=== PATIENT | male | born 1945 | race Caucasian/White ===

== ENCOUNTER 2018-02-22 10:19 | Inpatient (IN) ==
--- NOTE | 2018-02-22 10:46 | Emergency Department Note ---
Disposition Clinical Impression: Pelvic abscess, Small bowel obstruction Disposition: Admitted As Inpatient Referrals: Blanco,Daron rOtiz MD [Primary Care Provider] - Forms: ED Satisfaction Letter, Work/School Release Abdominal Pain HPI - General Chief Complaint: ED General Medical Stated Complaint: abd pain, vomiting Time Seen by Provider: 02/22/18 10:38 - History of Present Illness HPI Narrative: 72 YO M here for abdominal distension following an ostomy placement with Dr. Guerrero last Fri with d/c on Friday. Has has a history of rectal cancer. Patient states since his surgery he has not had a bowel movement but has been passing gas with increasing abdominal distension and discomfort. He reports no abdominal pain. He has N/V - with bilious vomitous and is unable to tolerate PO intake without vomiting. Patient denies headache, fever, chills, night sweats, myalgias, CP, SOB, urinary changes. Pain Scale: 0 - Related Data Home Medications Medication Instructions Recorded Confirmed Ascorbate Calcium [Vitamin C] 500 mg PO DAILY 11/21/17 02/18/18 Levothyroxine [Synthroid] 25 mcg PO DAILY 11/21/17 02/18/18 Insulin NPH Hum/Reg Insulin Hm 5 unit SQ TID 02/12/18 02/19/18 [Humulin 70-30 Vial] Atorvastatin [Lipitor] 10 mg PO HS 02/18/18 02/18/18 Cholecalciferol (Vitamin D3) 1,000 unit PO DAILY 02/18/18 02/18/18 [Vitamin D3] Cyanocobalamin (Vitamin B-12) 100 mcg PO DAILY 02/18/18 02/18/18 [Vitamin B-12] Insulin DETEMIR [Levemir] 16 unit SQ HS 02/18/18 02/18/18 Previous Rx's Medication Instructions Recorded Docusate [Colace] 100 mg PO BID #30 capsule 02/20/18 Ferrous Sulfate 325 mg PO BID #60 tablet 02/20/18 Ibuprofen [Ibu] 600 mg PO QID #40 tablet 02/20/18 Ondansetron ODT [Zofran ODT] 4 mg SL Q6HR PRN #30 tab.rapdis 02/20/18 OxyCODONE/APAP 5/325 [Percocet 1 each PO Q6HR PRN 5 Days #20 02/20/18 5/325 MG] tablet Allergies Allergy/AdvReac Type Severity Reaction Status Date / Time No Known Allergies Allergy Verified 02/16/18 10:14 All systems ED: reviewed and negative except as stated. Review of Systems: As Per HPI Constitutional: Denies: fever, chills, weakness, weight change, night sweats Cardiovascular: Denies: chest pain, palpitations Respiratory: Denies: cough, dyspnea Gastrointestinal: Reports: nausea, vomiting. Denies: abdominal pain Genitourinary: Denies: urgency, dysuria, frequency Neurological: Denies: headache, weakness Abdominal Pain PMH - Past Medical History Medical history: Reports: cancer, CVA, diabetes, hyperlipidemia, hypertension Male Surgical History: Reports: cancer surgery Psychiatric history: Reports: no psych history - Social History Smoking status: Never smoker Alcohol use: Reports: none Drug use: Reports: none Physical Exam - General Limitations: no limitations General appearance: alert, in no apparent distress - Head Head exam: atraumatic, normocephalic - Chest Chest inspection: Present: normal inspection, symmetric chest wall rise - Respiratory Respiratory exam: Present: normal lung sounds bilaterally. Absent: respiratory distress - Cardiovascular Cardiovascular exam: Present: regular rate, normal rhythm, normal heart sounds - Abdominal Exam Abdominal exam: Present: distention, normal bowel sounds. Absent: tenderness, guarding, rebound, rigidity - Neurological Exam Neurological exam: Present: alert, oriented X3 - Psychiatric Psychiatric exam: Present: normal affect, normal mood Course Course Narrative: 72 YO M here for abdominal distension following ostomy placement. Will workup bowel obstruction. - Ordered abdominal CT - Supportive care: fluids, zoffran - Urinalysis - Reevaluation(s) Reevaluation #1: CT abdomen shows obstruction vs postoperative ileus. Also sees mixed fluid and air collection which most likely is an abscess. Spoke to Dr. Rosenberg and he is okay to admit him and asked us to put in a NG 18-burmese. Vital Signs Temperature 97.5 F L 02/22/18 10:29 Pulse Rate 66 02/22/18 10:29 Respiratory Rate 20 02/22/18 10:29 Blood Pressure 101/72 02/22/18 10:29 O2 Sat by Pulse Oximetry 99 02/22/18 10:29 Temperature 97.5 F L 02/22/18 10:29 Pulse Rate 66 02/22/18 10:29 Respiratory Rate 20 02/22/18 10:29 Blood Pressure 101/72 02/22/18 10:29 O2 Sat by Pulse Oximetry 99 02/22/18 10:29 Oxygen Delivery Oxygen Delivery Room Air Abdominal Pain - Lab Data Result diagrams: 02/22/18 11:38 02/22/18 11:38 Lab Results 02/22/18 02/22/18 02/22/18 Range/Units 11:38 11:38 11:38 WBC 12.1 H (4.3-11.1) K/mcL RBC 3.55 L (4.19-5.50) M/mcL Hgb 10.2 L D (12.9-16.9) g/dL Hct 32.2 L (37.5-50.1) % MCV 90.7 (83.0-100.0) fL MCH 28.7 (28.0-33.3) pg MCHC 31.7 (31.6-35.5) g/dL RDW 14.8 H (11.5-14.5) % Plt Count 289 D (140-400) K/mcL MPV 9.3 L (9.4-12.4) fL Seg Neutrophils % 68.0 % Band Neutrophils % 20.0 H (0-4) % Lymphocytes % 6.0 % Monocytes % 6.0 % Neutrophils # 10.7 H (1.6-8.9) K/mcL Lymphocytes # 0.7 (0.6-4.6) K/mcL Monocytes # 0.7 (0.0-1.3) K/mcL Platelet Estimate Normal (Normal) Poikilocytosis 1+ A (Not Present) Anisocytosis 1+ A (Not Present) Sodium 139 (136-145) mEq/L Potassium 3.9 (3.5-5.1) mEq/L Chloride 101 (98-107) mEq/L Carbon Dioxide 31 H (23-29) mEq/L BUN 25 H (8-23) mg/dL Creatinine 0.91 (0.70-1.30) mg/dL Est GFR ( Amer) > 60 (> 60) Est GFR (Non-Af Amer) > 60 (> 60) BUN/Creatinine Ratio 27 H (6-26) Glucose 84 (70-105) mg/dL Calculated Osmolality 292 (280-300) Lactic Acid 1.2 (0.5-2.2) mmol/L Calcium 9.4 (8.6-10.3) mg/dL Total Bilirubin 0.5 (0.3-1.0) mg/dL AST 10 L (13-39) Units/L ALT 8 (7-52) Units/L Alkaline Phosphatase 123 H (34-104) Units/L Serum Total Protein 5.9 L (6.4-8.9) g/dL Albumin 2.6 L (3.5-5.7) g/dL Globulin 3.3 (2.4-3.5) g/dL Albumin/Globulin Ratio 0.8 L (1.1-2.2)
[2018-02-22] MEDS ORDERED: Ondansetron 4 MG/2 ML VIAL IVP ONE (11:05)
[2018-02-22] MEDS ORDERED: 0.9 % Sodium Chloride 1,000 ML IVC ONE (11:05)
[2018-02-22 11:47] LABS: Hematocrit 32.2 % (37.5-50.1); Mean Corpuscular HGB Conc 31.7 g/dL (31.6-35.5); Mean Corpuscular Hemoglobin 28.7 pg (28.0-33.3); Mean Corpuscular Volume 90.7 fL (83.0-100.0); Mean Platelet Volume 9.3 fL (9.4-12.4); Platelet Count 289 K/mcL (140-400); Red Blood Count 3.55 M/mcL (4.19-5.50); Red Cell Distribution Width 14.8 % (11.5-14.5)
[2018-02-22 11:55] LABS: Hemoglobin 10.2 g/dL (12.9-16.9)
[2018-02-22 12:13] LABS: Alanine Aminotransferase 8 Units/L (7-52); Albumin 2.6 g/dL (3.5-5.7); Albumin/Globulin Ratio 0.8 (1.1-2.2); Alkaline Phosphatase 123 Units/L (34-104); Aspartate Amino Transferase 10 Units/L (13-39); BUN/Creatinine Ratio 27 (6-26); Bilirubin,Total 0.5 mg/dL (0.3-1.0); Blood Urea Nitrogen 25 mg/dL (8-23); Calcium 9.4 mg/dL (8.6-10.3); Carbon Dioxide 31 mEq/L (23-29); Chloride 101 mEq/L (98-107); Globulin 3.3 g/dL (2.4-3.5); Glucose 84 mg/dL (70-105); Osmolality,Calculated 292 (280-300); Potassium 3.9 mEq/L (3.5-5.1); Sodium 139 mEq/L (136-145); Total Protein 5.9 g/dL (6.4-8.9); eGFR For Non-African Americans > 60 (> 60)
[2018-02-22 12:14] LABS: Anisocytosis 1+ (Not Present); Lymphocytes # 0.7 K/mcL (0.6-4.6); Monocytes # 0.7 K/mcL (0.0-1.3); Neutrophils # 10.7 K/mcL (1.6-8.9); Platelet Estimate Normal (Normal); Poikilocytosis 1+ (Not Present)
[2018-02-22] MEDS ORDERED: Ondansetron ODT 4 MG TAB.RAPDIS SL PRN (13:02)
[2018-02-22] MEDS ORDERED: OXYCODONE Oral CONC 10 MG/0.5 ML ORAL.SYG SL PRN (13:02)
--- NOTE | 2018-02-22 13:13 | Emergency Department Note ---
Disposition Clinical Impression: Pelvic abscess, Small bowel obstruction Disposition: Admitted As Inpatient Referrals: Francis,Daron Ortiz MD [Primary Care Provider] - Forms: ED Satisfaction Letter, Work/School Release General Adult HPI - General Chief complaint: ED General Medical Stated complaint: abd pain, vomiting Time Seen by Provider: 02/22/18 10:38 Limitations: no limitations - History of Present Illness Pain Scale: 0 - Related Data Home Medications Medication Instructions Recorded Confirmed Ascorbate Calcium [Vitamin C] 500 mg PO DAILY 11/21/17 02/22/18 Levothyroxine [Synthroid] 25 mcg PO DAILY 11/21/17 02/22/18 Insulin NPH Hum/Reg Insulin Hm 5 unit SQ TID 02/12/18 02/22/18 [Humulin 70-30 Vial] Atorvastatin [Lipitor] 10 mg PO HS 02/18/18 02/22/18 Cholecalciferol (Vitamin D3) 1,000 unit PO DAILY 02/18/18 02/22/18 [Vitamin D3] Cyanocobalamin (Vitamin B-12) 100 mcg PO DAILY 02/18/18 02/22/18 [Vitamin B-12] Insulin DETEMIR [Levemir] 16 unit SQ HS 02/18/18 02/22/18 Previous Rx's Medication Instructions Recorded Docusate [Colace] 100 mg PO BID #30 capsule 02/20/18 Ferrous Sulfate 325 mg PO BID #60 tablet 02/20/18 Ibuprofen [Ibu] 600 mg PO QID #40 tablet 02/20/18 Ondansetron ODT [Zofran ODT] 4 mg SL Q6HR PRN #30 tab.rapdis 02/20/18 OxyCODONE/APAP 5/325 [Percocet 1 each PO Q6HR PRN 5 Days #20 02/20/18 5/325 MG] tablet Allergies Allergy/AdvReac Type Severity Reaction Status Date / Time No Known Allergies Allergy Verified 02/16/18 10:14 Constitutional: Denies: fever, chills, weakness, weight change, night sweats Cardiovascular: Denies: chest pain, palpitations Respiratory: Denies: cough, dyspnea Gastrointestinal: Reports: nausea, vomiting. Denies: abdominal pain Genitourinary: Denies: urgency, dysuria, frequency Neurological: Denies: headache, weakness Past Medical History - Past Medical History Medical history: Reports: cancer, CVA, diabetes, hyperlipidemia, hypertension Surgical history: Reports: colectomy Psychiatric history: Reports: no psych history - Social History Smoking Status: Never smoker Smokeless Tobacco Status: No Alcohol use: Reports: none Drug use: Reports: none Physical Exam - General Limitations: no limitations General appearance: alert, in no apparent distress Course Vital Signs Temperature 97.5 F L 02/22/18 10:29 Pulse Rate 66 02/22/18 10:29 Respiratory Rate 20 02/22/18 10:29 Blood Pressure 101/72 02/22/18 10:29 O2 Sat by Pulse Oximetry 99 02/22/18 10:29 Temperature 97.5 F L 02/22/18 10:29 Pulse Rate 66 02/22/18 10:29 Respiratory Rate 20 02/22/18 10:29 Blood Pressure 101/72 02/22/18 10:29 O2 Sat by Pulse Oximetry 99 02/22/18 10:29 Oxygen Delivery Oxygen Delivery Room Air Medical Decision Making - Lab Data Result diagrams: 02/22/18 11:38 02/22/18 11:38 Lab Results 02/22/18 02/22/18 02/22/18 Range/Units 11:38 11:38 11:38 WBC 12.1 H (4.3-11.1) K/mcL RBC 3.55 L (4.19-5.50) M/mcL Hgb 10.2 L D (12.9-16.9) g/dL Hct 32.2 L (37.5-50.1) % MCV 90.7 (83.0-100.0) fL MCH 28.7 (28.0-33.3) pg MCHC 31.7 (31.6-35.5) g/dL RDW 14.8 H (11.5-14.5) % Plt Count 289 D (140-400) K/mcL MPV 9.3 L (9.4-12.4) fL Seg Neutrophils % 68.0 % Band Neutrophils % 20.0 H (0-4) % Lymphocytes % 6.0 % Monocytes % 6.0 % Neutrophils # 10.7 H (1.6-8.9) K/mcL Lymphocytes # 0.7 (0.6-4.6) K/mcL Monocytes # 0.7 (0.0-1.3) K/mcL Platelet Estimate Normal (Normal) Poikilocytosis 1+ A (Not Present) Anisocytosis 1+ A (Not Present) Sodium 139 (136-145) mEq/L Potassium 3.9 (3.5-5.1) mEq/L Chloride 101 (98-107) mEq/L Carbon Dioxide 31 H (23-29) mEq/L BUN 25 H (8-23) mg/dL Creatinine 0.91 (0.70-1.30) mg/dL Est GFR ( Amer) > 60 (> 60) Est GFR (Non-Af Amer) > 60 (> 60) BUN/Creatinine Ratio 27 H (6-26) Glucose 84 (70-105) mg/dL Calculated Osmolality 292 (280-300) Lactic Acid 1.2 (0.5-2.2) mmol/L Calcium 9.4 (8.6-10.3) mg/dL Total Bilirubin 0.5 (0.3-1.0) mg/dL AST 10 L (13-39) Units/L ALT 8 (7-52) Units/L Alkaline Phosphatase 123 H (34-104) Units/L Serum Total Protein 5.9 L (6.4-8.9) g/dL Albumin 2.6 L (3.5-5.7) g/dL Globulin 3.3 (2.4-3.5) g/dL Albumin/Globulin Ratio 0.8 L (1.1-2.2) Attestation Statement - Attestation Attestation: I examined this patient and my medical decision-making was reviewed with the Resident Physician. I agree with the documented findings, disposition and treatment plan as described except to the extent set forth below. 72 year old male presnts to the ED with copmlaints of abdominal pain s/p hemicolectomy per Dr. Guerrero a few days ago. CT confirms ileus vs obstruction in a ddititon to post-operative fluid collection vs absess in the pelvis. We will admit surgery which momo alvarez accepts by DR Radha Rosenberg. Lolis states tht he has had been expernicing decreasd bowel movement and gas production and increased abdominal pain
--- NOTE | 2018-02-22 14:34 | General Surg History&Physical ---
<Christopher Mariano R - Last Filed: 02/22/18 14:58> Date of Encounter: 02/22/18 Time of Encounter: 14:26 Assessment and Plan (1) Small bowel obstruction Current Visit: Yes Status: Acute The assessment and plan as outlined above was discussed with the patient and/or family members who expressed understanding and agreement. All questions were answered. Patient does present with abdominal distention and minimal ostomy output. Bowel sounds are present and hyperactive. CT findings consistent with small bowel obstruction versus ileus, no definite transition point noted. Plan: We will admit patient for further management and observation Place 18-[place] NG to LIWS NPO IV fluids labs including phosphorus and magnesium Replete electrolytes as needed prn antiemetic Serial abdominal exams History of Present Illness Chief complaint: abdominal distention, vomiting HPI: Mr. Rodriguez is a 72 year old male with history of diabetes and colon cancer. He is POD#4 s/p robotic diverting colostomy with excisional rectal biopsy with Dr. Guerrero on 02/18/2018. Patient's postsurgical course was uncomplicated. He was discharged on 02/20/2018 on regular diet without nausea or vomiting. Patient was discharged to home with home health care and outpatient physical therapy per patient and spouse preference. At that time patient was having flatus ostomy output. Since discharge patient has developed nausea and vomiting worse in the evening, vomitus is dark in color with no visible blood. Patient has been eating liquid and soft foods since discharge and does not associate vomiting with eating. Associated abdominal distention and tympany. Denies abdominal pain or discomfort. No gas or stool ostomy output since evening. Denies fever or chills. Last episode of vomiting was this morning at approximately 6 AM, at that time it was noted that abdominal distention was worsening and they subsequently presented to the emergency department for further evaluation. CT of the abdomen and pelvis was obtained in the emergency department with findings consistent with small bowel obstruction versus ileus, as well as persistent pelvic abscess. Initial vital signs were within normal limits, afebrile. WBC 12.1, hemoglobin 10.2, hematocrit 32.2, platelets 289. Upon evaluation in the ED the patient denies nausea, however has received Zofran. Admits to ongoing abdominal distention without pain. 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, and aphasia, Psychiatric history: no psych history - Past Surgical History Surgical History: colectomy Additional surgical history: colostomy 02/18/2018 - Social History Smoking Status: Never smoker Smokeless Tobacco Status: No Alcohol use: none Drug use: none - Family History Father Adopted: No Living Status: Hx Family Cardiac Disorders: Yes Hx Family Respiratory Disorders: No Hx Family Cancer: Yes Hx Family GI Disorders: No Hx Family Endocrine Disorder: Yes Hx Family Neuromuscular Disorders: No Hx Family Neurologic Disorders: No Hx Family HEENT Disorders: No Hx Family Autoimmune Disorders: No Medications and Allergies Ascorbate Calcium [Vitamin C] 500 mg PO DAILY 11/21/17 [History] Levothyroxine [Synthroid] 25 mcg PO DAILY 11/21/17 [History] Insulin NPH Hum/Reg Insulin Hm [Humulin 70-30 Vial] 5 unit SQ TID 02/12/18 [ History] Atorvastatin [Lipitor] 10 mg PO HS 02/18/18 [History] Cholecalciferol (Vitamin D3) [Vitamin D3] 1,000 unit PO DAILY 02/18/18 [History] Cyanocobalamin (Vitamin B-12) [Vitamin B-12] 100 mcg PO DAILY 02/18/18 [History] Insulin DETEMIR [Levemir] 16 unit SQ HS 02/18/18 [History] Docusate [Colace] 100 mg PO BID #30 capsule 02/20/18 [Rx] Ferrous Sulfate 325 mg PO BID #60 tablet 02/20/18 [Rx] Ibuprofen [Ibu] 600 mg PO QID #40 tablet 02/20/18 [Rx] Ondansetron ODT [Zofran ODT] 4 mg SL Q6HR PRN #30 tab.rapdis 02/20/18 [Rx] OxyCODONE/APAP 5/325 [Percocet 5/325 MG] 1 each PO Q6HR PRN 5 Days #20 tablet [Rx] 3 Allergy/AdvReac Type Severity Reaction Status Date / Time No Known Allergies Allergy Verified 02/16/18 10:14 Review of Systems All systems PM: The remainder of the systems were reviewed and are negative - Constitutional no chills, no fever(s) - Cardiovascular no chest pain - Respiratory no dyspnea - Gastrointestinal bloating, nausea, vomiting, no abdominal pain, no hematemesis, no hematochezia, no melena General Surgery Exam Initial Vital Signs Temp Pulse Resp BP Pulse Ox 97.5 F L 66 20 101/72 99 02/22/18 10:29 02/22/18 10:29 02/22/18 10:29 02/22/18 10:29 02/22/18 10:29 - General physical appearance no distress, no pain, chronically ill - Eyes normal ocular movement - ENT normal mucosa, atraumatic, normocephalic - Neck trachea midline - Respiratory normal expansion, normal respiratory effort, clear to auscultation - Cardiovascular Cardiovascular exam: Present: RRR - Abdomen Abdomen general surgery: Present: bowel sounds present (Hyperactive bowel sounds ), soft, distended, wound ([place] colostomy with minimal gas and stool present.). Absent: guarding, rebound, rigid - Incision Incision: Present: clean and dry (Small incisions surgical maki present and intact. No erythema or drainage noted), intact - Integumentary Integumentary general surgery: Present: warm and dry - Neurologic Present: CN 2-12 grossly intact - Musculoskeletal Present: normal posture - Psychiatric Psychiatric general surgery: Present: A&Ox3, speech is normal Results - Labs 02/22/18 11:38 02/22/18 11:38 Abnormal lab results WBC 12.1 K/mcL (4.3-11.1) H 02/22/18 11:38 RBC 3.55 M/mcL (4.19-5.50) L 02/22/18 11:38 Hgb 10.2 g/dL (12.9-16.9) L D 02/22/18 11:38 Hct 32.2 % (37.5-50.1) L 02/22/18 11:38 RDW 14.8 % (11.5-14.5) H 02/22/18 11:38 MPV 9.3 fL (9.4-12.4) L 02/22/18 11:38 Band Neutrophils % 20.0 % (0-4) H 02/22/18 11:38 Neutrophils # 10.7 K/mcL (1.6-8.9) H 02/22/18 11:38 Poikilocytosis 1+ (Not Present) A 02/22/18 11:38 Anisocytosis 1+ (Not Present) A 02/22/18 11:38 Carbon Dioxide 31 mEq/L (23-29) H 02/22/18 11:38 BUN 25 mg/dL (8-23) H 02/22/18 11:38 BUN/Creatinine Ratio 27 (6-26) H 02/22/18 11:38 AST 10 Units/L (13-39) L 02/22/18 11:38 Alkaline Phosphatase 123 Units/L (34-104) H 02/22/18 11:38 Serum Total Protein 5.9 g/dL (6.4-8.9) L 02/22/18 11:38 Albumin 2.6 g/dL (3.5-5.7) L 02/22/18 11:38 Albumin/Globulin Ratio 0.8 (1.1-2.2) L 02/22/18 11:38 All other labs normal. <Armond Rosenberg - Last Filed: 02/22/18 17:16> Date of Encounter: 02/22/18 History of Present Illness HPI: Mr. Rodriguez is a 72 year old male Review of Systems All systems PM: The remainder of the systems were reviewed and are negative General Surgery Exam Initial Vital Signs Temp Pulse Resp BP Pulse Ox 97.5 F L 66 20 101/72 99 02/22/18 10:29 02/22/18 10:29 02/22/18 10:29 02/22/18 10:29 02/22/18 10:29 Results - Labs 02/22/18 11:38 02/22/18 15:06 Abnormal lab results WBC 12.1 K/mcL (4.3-11.1) H 02/22/18 11:38 RBC 3.55 M/mcL (4.19-5.50) L 02/22/18 11:38 Hgb 10.2 g/dL (12.9-16.9) L D 02/22/18 11:38 Hct 32.2 % (37.5-50.1) L 02/22/18 11:38 RDW 14.8 % (11.5-14.5) H 02/22/18 11:38 MPV 9.3 fL (9.4-12.4) L 02/22/18 11:38 Band Neutrophils % 20.0 % (0-4) H 02/22/18 11:38 Neutrophils # 10.7 K/mcL (1.6-8.9) H 02/22/18 11:38 Poikilocytosis 1+ (Not Present) A 02/22/18 11:38 Anisocytosis 1+ (Not Present) A 02/22/18 11:38 Potassium 3.4 mEq/L (3.5-5.1) L 02/22/18 15:06 Carbon Dioxide 34 mEq/L (23-29) H 02/22/18 15:06 BUN 26 mg/dL (8-23) H 02/22/18 15:06 BUN/Creatinine Ratio 30 (6-26) H 02/22/18 15:06 Glucose 66 mg/dL (70-105) L 02/22/18 15:06 Phosphorus 2.2 mg/dL (2.7-4.5) L 02/22/18 15:06 AST 9 Units/L (13-39) L 02/22/18 15:06 Alkaline Phosphatase 124 Units/L (34-104) H 02/22/18 15:06 Serum Total Protein 5.6 g/dL (6.4-8.9) L 02/22/18 15:06 Albumin 2.5 g/dL (3.5-5.7) L 02/22/18 15:06 Albumin/Globulin Ratio 0.8 (1.1-2.2) L 02/22/18 15:06 Diabetes panel 02/22/18 Range/Units 15:06 Sodium 141 (136-145) mEq/L Potassium 3.4 L (3.5-5.1) mEq/L Chloride 103 (98-107) mEq/L Carbon Dioxide 34 H (23-29) mEq/L BUN 26 H (8-23) mg/dL Creatinine 0.86 (0.70-1.30) mg/dL Glucose 66 L (70-105) mg/dL Calcium 9.2 (8.6-10.3) mg/dL AST 9 L (13-39) Units/L ALT 8 (7-52) Units/L Alkaline Phosphatase 124 H (34-104) Units/L Albumin 2.5 L (3.5-5.7) g/dL Calcium panel 09/23/18 Range/Units 15:06 Calcium 9.2 (8.6-10.3) mg/dL Phosphorus 2.2 L (2.7-4.5) mg/dL Albumin 2.5 L (3.5-5.7) g/dL Pituitary panel 02/22/18 Range/Units 15:06 Sodium 141 (136-145) mEq/L Potassium 3.4 L (3.5-5.1) mEq/L Chloride 103 (98-107) mEq/L Carbon Dioxide 34 H (23-29) mEq/L BUN 26 H (8-23) mg/dL Creatinine 0.86 (0.70-1.30) mg/dL Glucose 66 L (70-105) mg/dL Calcium 9.2 (8.6-10.3) mg/dL Adrenal panel 02/22/18 Range/Units 15:06 Sodium 141 (136-145) mEq/L Potassium 3.4 L (3.5-5.1) mEq/L Chloride 103 (98-107) mEq/L Carbon Dioxide 34 H (23-29) mEq/L BUN 26 H (8-23) mg/dL Creatinine 0.86 (0.70-1.30) mg/dL Glucose 66 L (70-105) mg/dL Calcium 9.2 (8.6-10.3) mg/dL Total Bilirubin 0.5 (0.3-1.0) mg/dL AST 9 L (13-39) Units/L ALT 8 (7-52) Units/L Alkaline Phosphatase 124 H (34-104) Units/L Albumin 2.5 L (3.5-5.7) g/dL All other labs normal. - Attending Attestation patient seen and examined. i have reviewed all labs, imaging and notes. i agree with the above assessment and plan and wish to add the following... 72M s/p diverting colostomy 2/2 inoperative rectal cancer admitted with sbo; NG tube npo ivf serial exam no acute surgery
[2018-02-22 15:40] LABS: Alanine Aminotransferase 8 Units/L (7-52); Albumin 2.5 g/dL (3.5-5.7); Albumin/Globulin Ratio 0.8 (1.1-2.2); Alkaline Phosphatase 124 Units/L (34-104); Aspartate Amino Transferase 9 Units/L (13-39); BUN/Creatinine Ratio 30 (6-26); Bilirubin,Total 0.5 mg/dL (0.3-1.0); Blood Urea Nitrogen 26 mg/dL (8-23); Calcium 9.2 mg/dL (8.6-10.3); Carbon Dioxide 34 mEq/L (23-29); Chloride 103 mEq/L (98-107); Globulin 3.1 g/dL (2.4-3.5); Glucose 66 mg/dL (70-105); Magnesium 1.7 mg/dL (1.6-2.6); Osmolality,Calculated 295 (280-300); Phosphorous 2.2 mg/dL (2.7-4.5); Potassium 3.4 mEq/L (3.5-5.1); Sodium 141 mEq/L (136-145); Total Protein 5.6 g/dL (6.4-8.9); eGFR For Non-African Americans > 60 (> 60)
[2018-02-22] MEDS: D5% in 0.45% NACL w KCl 20 MEQ/1,000 ML MLS IVC SCH (17:32)
[2018-02-22] MEDS ORDERED: Melatonin 3 MG TABLET PO PRN (17:51)
[2018-02-23] MEDS: D5% in 0.45% NACL w KCl 20 MEQ/1,000 ML MLS IVC SCH ×2 (03:59→11:27)
[2018-02-23 06:59] LABS: Eosinophils % 0.1 %; Hematocrit 27.5 % (37.5-50.1); Immature Granulocytes % 0.2 % (0-4); Lymphocytes # 0.2 K/mcL (0.6-4.6); Lymphocytes % 2.2 %; Mean Corpuscular HGB Conc 31.3 g/dL (31.6-35.5); Mean Corpuscular Hemoglobin 28.5 pg (28.0-33.3); Mean Corpuscular Volume 91.1 fL (83.0-100.0); Mean Platelet Volume 9.7 fL (9.4-12.4); Monocytes # 0.3 K/mcL (0.0-1.3); Monocytes % 3.7 %; Neutrophils # 7.5 K/mcL (1.6-8.9); Platelet Count 186 K/mcL (140-400); Red Blood Count 3.02 M/mcL (4.19-5.50); Red Cell Distribution Width 15.1 % (11.5-14.5); Segmented Neutrophils % 93.8 %
[2018-02-23 07:06] LABS: Hemoglobin 8.6 g/dL (12.9-16.9)
[2018-02-23 07:28] LABS: Platelet Estimate Normal (Normal)
[2018-02-23] MEDS: *HR* Enoxaparin 40 MG/0.4 ML SYRINGE SQ SCH (07:28)
[2018-02-23 07:46] LABS: BUN/Creatinine Ratio 33 (6-26); Blood Urea Nitrogen 26 mg/dL (8-23); Calcium 8.6 mg/dL (8.6-10.3); Carbon Dioxide 28 mEq/L (23-29); Chloride 103 mEq/L (98-107); Glucose 274 mg/dL (70-105); Magnesium 1.7 mg/dL (1.6-2.6); Osmolality,Calculated 307 (280-300); Phosphorous 3.9 mg/dL (2.7-4.5); Potassium 3.7 mEq/L (3.5-5.1); Sodium 141 mEq/L (136-145); eGFR For Non-African Americans > 60 (> 60)
--- NOTE | 2018-02-23 08:55 | General Surgery Progress Note ---
Date of Encounter: 02/23/18 Time of Encounter: 08:55 - Assessment and Plan (1) Small bowel obstruction Current Visit: Yes Status: Acute 72M s/p diverting colostomy 2/2 non operable rectal cancer now with dilation of stomach and small bowel, concerning for sbo vs ileus; currently soft abdomen with little output; ostomy is pink and viable; keep nPO cont ng tube KUB today; possible SBFT pending those results replete lytes IVF PT/OT Subjective Patient reports: no new complaints, other Objective Vital Signs - Last 8 Hours Temp Pulse Resp BP Pulse Ox 02/23/18 06:45 98.0 F 89 14 155/74 94 02/23/18 03:15 98.0 F 90 15 150/85 96 Intake and Output 02/22/18 02/23/18 02/23/18 23:59 07:59 15:59 Intake Total 1360 / 1360 Output Total 0 / 0 700 / 700 Balance 660 / 660 Intake: IV Fluids 1360 / 1360 KCl 20mEq IN D5%-0.45 NACL 20 1000 / 1000 meq In 1,000 ml @ 125 mls/hr IVC .Q8H DRAKE Rx#:[id number] Potassium Chloride 10 mEq/100mL 100 / 100 100 / 100 10 meq In 100 ml @ 100 mls/hr IVPB Q1H DRAKE Rx#:[id number] Sodium Phosphate 30 MMOL In 0.9 260 / 260 % Sodium Chloride 250 ML @ 42 mls/hr IVPB ONCE ONE Rx#: [id number] Oral 0 / 0 0 / 0 Output: Urine 0 / 0 0 / 0 Stool 0 / 0 Gastric Drainage 700 / 700 Other: Meal NPO DINNER Stool Size Small Small Stool Consistency liquid loose liquid Stool Color Brown Bucio Ernesto Colored # Urine Diapers 1 # Bowel Movements 0 1 # Bowel Movement Diapers 1 0 Weight 59.7 kg Blood Glucose* 167 260 Patient Weight 02/23/18 23:59 Weight 59.7 kg - General physical appearance no distress - Respiratory normal expansion, normal respiratory effort - Cardiovascular Cardiovascular exam: Present: RRR - Abdomen Abdomen: Present: soft, non tender (non distended) Additional Comments: functioning ostomy with minimal liquid stool; ostomy is pink, viable, and functioning - Integumentary no rash - Neurologic CN 2-12 grossly intact - Labs 02/23/18 06:22 02/23/18 06:22 Diabetes panel 02/23/18 Range/Units 06:22 Sodium 141 (136-145) mEq/L Potassium 3.7 (3.5-5.1) mEq/L Chloride 103 (98-107) mEq/L Carbon Dioxide 28 (23-29) mEq/L BUN 26 H (8-23) mg/dL Creatinine 0.80 (0.70-1.30) mg/dL Glucose 274 H (70-105) mg/dL Calcium 8.6 (8.6-10.3) mg/dL Calcium panel 02/23/18 Range/Units 06:22 Calcium 8.6 (8.6-10.3) mg/dL Phosphorus 3.9 (2.7-4.5) mg/dL Pituitary panel 02/23/18 Range/Units 06:22 Sodium 141 (136-145) mEq/L Potassium 3.7 (3.5-5.1) mEq/L Chloride 103 (98-107) mEq/L Carbon Dioxide 28 (23-29) mEq/L BUN 26 H (8-23) mg/dL Creatinine 0.80 (0.70-1.30) mg/dL Glucose 274 H (70-105) mg/dL Calcium 8.6 (8.6-10.3) mg/dL Adrenal panel 02/23/18 Range/Units 06:22 Sodium 141 (136-145) mEq/L Potassium 3.7 (3.5-5.1) mEq/L Chloride 103 (98-107) mEq/L Carbon Dioxide 28 (23-29) mEq/L BUN 26 H (8-23) mg/dL Creatinine 0.80 (0.70-1.30) mg/dL Glucose 274 H (70-105) mg/dL Calcium 8.6 (8.6-10.3) mg/dL Consult Discharge Plan - Plan Referrals: Daron Blanoc MD [Primary Care Provider] -
[2018-02-23] MEDS ORDERED: D5% in 0.45% NACL w KCl 20 MEQ/1,000 ML MLS IVC SCH (09:37)
[2018-02-23] MEDS: Iron Sucrose Complex 250 MG in 0.9 % Sodium Chloride 250 ML IVPB SCH (11:27)
[2018-02-23] MEDS ORDERED: Dextrose Gel 15 GM/37.5 ML TUBE PO PRN ×2 (11:39)
[2018-02-23] MEDS ORDERED: D5% in Water 1,000 ML IVC PRN (11:39)
[2018-02-23] MEDS ORDERED: *HR* Dextrose 50 % in Water (Syg) 50 ML SYRINGE IVP PRN (11:39)
[2018-02-23] MEDS: Metoclopramide 10 MG/2 ML VIAL IVP SCH ×2 (11:48→19:10)
[2018-02-23] MEDS: Insulin LISPRO 300 UNITS/3 ML VIAL SQ SCH ×3 (14:27→19:14)
[2018-02-23] MEDS: 0.9 % Sodium Chloride w KCl 20 MEQ/1,000 ML MLS IVC SCH (14:27)
[2018-02-24] MEDS: Insulin LISPRO 300 UNITS/3 ML VIAL SQ SCH ×6 (00:40→21:25)
[2018-02-24] MEDS: Metoclopramide 10 MG/2 ML VIAL IVP SCH ×4 (00:41→17:27)
[2018-02-24] MEDS: 0.9 % Sodium Chloride w KCl 20 MEQ/1,000 ML MLS IVC SCH ×3 (02:15→19:51)
[2018-02-24] MEDS: *HR* Enoxaparin 40 MG/0.4 ML SYRINGE SQ SCH (05:04)
[2018-02-24] MEDS: Iron Sucrose Complex 250 MG in 0.9 % Sodium Chloride 250 ML IVPB SCH (08:05)
--- NOTE | 2018-02-24 10:00 | General Surgery Progress Note ---
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 Small soft BM by ostomy. ), afebrile Objective Vital Signs - Last 8 Hours Temp Pulse Resp BP Pulse Ox 02/24/18 06:33 98.4 F 92 16 166/89 98 02/24/18 04:22 98.2 F 88 15 177/84 95 Intake and Output 02/23/18 02/24/18 02/24/18 23:59 07:59 15:59 Intake Total 100 / 100 1000 / 1000 500 / 500 Output Total 550 / 550 650 / 650 Balance -450 / -450 350 / 350 500 / 500 Intake: IV Fluids 100 / 100 1000 / 1000 500 / 500 KCl 20 mEq in 0.9% Sodium 1000 / 1000 500 / 500 Chloride 20 meq In 1,000 ml @ 100 mls/hr IVC .Q10H [facility] Rx#: [id number] Oral 0 / 0 0 / 0 Output: Urine 0 / 0 0 / 0 Stool 0 / 0 Gastric Drainage 550 / 550 650 / 650 Other: Meal NPO Dinner NPO BREAKFAST Percent of Meal Consumed 0% Stool Size Small Stool Consistency liquid Stool Color Ernesto Colored # Urine Diapers 1 1 1 # Bowel Movement Diapers 1 1 Weight 60.1 kg Blood Glucose* 155 144 174 Patient Weight 02/24/18 23:59 Weight 60.1 kg - General physical appearance no distress, cachectic, chronically ill - Eyes normal ocular movement - ENT normal pinna, normal nares, normal mucosa, no hearing loss - Respiratory normal expansion, normal respiratory effort, clear to auscultation - Cardiovascular Cardiovascular exam: Present: RRR. Absent: murmurs, rubs - Abdomen Abdomen: Present: bowel sounds present, soft, non tender. Absent: distended Additional Comments: ostomy healthy pink with out inflammation with small liquid brown output. - Incision Incision: Present: intact. Absent: draining, inflamed, erythema - Musculoskeletal normal posture - Psychiatric speech is normal - Additional Exam memory and language at his baseline. Stable neurological deficits - Labs 02/23/18 06:22 02/23/18 06:22 Consult Discharge Plan - Plan Referrals: Daron Blanco MD [Primary Care Provider] -
[2018-02-24] MEDS ORDERED: Lidocaine -MPF 1% 5 ML AMPUL INFILT ONE (11:04)
[2018-02-24] MEDS ORDERED: D10% in Water 500 ML IVC PRN (11:18)
[2018-02-24] MEDS: Pantoprazole 40 MG VIAL IVP SCH ×2 (13:34→16:03)
[2018-02-24] MEDS ORDERED: Clinimix E 5%-15% SOLUTION 2,000 ML with MVI, adult with vitamin K 10 ML IVC SCH (17:00)
[2018-02-25] MEDS: Insulin LISPRO 300 UNITS/3 ML VIAL SQ SCH ×7 (00:31→21:54)
[2018-02-25] MEDS: Metoclopramide 10 MG/2 ML VIAL IVP SCH ×4 (00:38→17:11)
[2018-02-25 04:38] LABS: Hematocrit 24.4 % (37.5-50.1); Hemoglobin 7.6 g/dL (12.9-16.9); Lymphocytes # 0.2 K/mcL (0.6-4.6); Lymphocytes % 3.2 %; Mean Corpuscular HGB Conc 31.1 g/dL (31.6-35.5); Mean Corpuscular Hemoglobin 29.2 pg (28.0-33.3); Mean Corpuscular Volume 93.8 fL (83.0-100.0); Mean Platelet Volume 9.8 fL (9.4-12.4); Monocytes # 0.5 K/mcL (0.0-1.3); Monocytes % 6.6 %; Neutrophils # 6.3 K/mcL (1.6-8.9); Platelet Count 148 K/mcL (140-400); Red Cell Distribution Width 15.4 % (11.5-14.5); Segmented Neutrophils % 89.2 %
[2018-02-25 04:58] LABS: BUN/Creatinine Ratio 27 (6-26); Blood Urea Nitrogen 21 mg/dL (8-23); Calcium 8.5 mg/dL (8.6-10.3); Carbon Dioxide 32 mEq/L (23-29); Chloride 108 mEq/L (98-107); Glucose 231 mg/dL (70-105); Magnesium 1.7 mg/dL (1.6-2.6); Osmolality,Calculated 314 (280-300); Phosphorous 1.8 mg/dL (2.7-4.5); Potassium 3.1 mEq/L (3.5-5.1); Sodium 147 mEq/L (136-145); eGFR For Non-African Americans > 60 (> 60)
[2018-02-25] MEDS: Pantoprazole 40 MG VIAL IVP SCH ×2 (05:44→17:11)
[2018-02-25] MEDS: *HR* Enoxaparin 40 MG/0.4 ML SYRINGE SQ SCH (05:44)
[2018-02-25] MEDS: Iron Sucrose Complex 250 MG in 0.9 % Sodium Chloride 250 ML IVPB SCH (08:53)
--- NOTE | 2018-02-25 11:46 | General Surgery Progress Note ---
<Yamile Guerrero - Last Filed: 02/25/18 12:04> Date of Encounter: 02/25/18 Time of Encounter: 11:15 - Assessment and Plan (1) Postoperative ileus Current Visit: Yes Status: Acute Patient has responded well to conservative measures SBFT 02/24/18 shows rapid transit of contrast into the colon NG removal today Trial full liquid diet Continue TPN for nutritional support Manager Media for management of TPN- add PO supplementation (diabetic modifications ) Stop MIV fluids Supportive care and pain control IS every 1 hour while awake PPI therapy daily PT/OT for mobilization Repeat am labs- CBC, BMP, Mg, Phos (2) Rectal cancer Current Visit: No Status: Chronic Patient to follow-up with oncology as an outpatient Will need a PET scan complete- Dr. Guerrero discussed with oncologist Biopsy results reviewed with the patient's per Dr. Guerrero (3) Anemia of chronic disease Current Visit: No Status: Acute Continue to monitor and treat as necessary Complete iron infusions (4) Generalized weakness Current Visit: No Status: Chronic PT/OT for mobilization (5) Hypokalemia Current Visit: Yes Status: Acute Replace potassium Repeat am labs (6) Severe protein-calorie malnutrition Current Visit: Yes Status: Acute Continue TPN for nutritional support Full liquid diet with PO protein supplements Manager Media consulted for assistance with management (7) Hypophosphatemia Current Visit: Yes Status: Acute Replace Phosphorus Repeat am labs (8) DVT prophylaxis Current Visit: Yes Status: Acute Continue lovenox 40mg Daily for DVT prophylaxis EPCDs to bilateral lower extremities for DVT prophylaxis Subjective Patient reports: no new complaints, feels better, still having pain, pain is less, voiding w/o difficulty, flatus, bowel movement (via colostomy), afebrile Objective Vital Signs - Last 8 Hours Temp Pulse Resp BP Pulse Ox 02/25/18 10:28 98.3 F 81 16 142/80 97 02/25/18 06:53 98.0 F 78 16 147/70 97 02/25/18 04:36 98 F 76 16 145/80 95 Intake and Output 02/24/18 02/25/18 02/25/18 23:59 07:59 15:59 Intake Total 1000 / 1000 0 / 0 512.5 / 512.5 Output Total 425 / 425 0 / 0 400 / 400 Balance 575 / 575 0 / 0 112.5 / 112.5 Intake: IV Fluids 1000 / 1000 512.5 / 512.5 KCl 20 mEq in 0.9% Sodium 1000 / 1000 Chloride 20 meq In 1,000 ml @ 100 mls/hr IVC .Q10H [facility] Rx#: [id number] Intralipid 20% 250 ML @ 21 mls/ 250 / 250 hr IVPB DAILY@1700 [facility] Rx#: [id number] Venofer 250 MG In 0.9 % Sodium 262.5 / 262.5 Chloride 250 ML @ 130 mls/hr IVPB DAILY [facility] Rx#:[id number] Oral 0 / 0 0 / 0 0 / 0 Output: Urine 0 / 0 Stool 425 / 425 0 / 0 50 / 50 Gastric Drainage 0 / 0 350 / 350 Other: Meal NPO DINNER NPO Breakfast Percent of Meal Consumed 0% Stool Consistency liquid Stool Color Brown Yellow # Voids 1 # Urine Diapers 1 0 0 # Bowel Movement Diapers 0 Blood Glucose* 253 253 176 - General physical appearance no distress, chronically ill - Eyes normal ocular movement - ENT dry mucosa, atraumatic, normocephalic - Neck Neck exam: trachea midline - Respiratory normal respiratory effort, clear to auscultation, other (diminished bibasilar bases) - Cardiovascular Cardiovascular exam: Present: RRR - Abdomen Abdomen: Present: bowel sounds present (hypoactive), soft, tender (minimal, expected tenderness), wound (Colostomy is pink and moist with liquid stool and flatus noted; NG tube to LIWS with scant amount of bilious drainage noted ) - Incision Incision: Present: clean and dry, intact - Neurologic CN 2-12 grossly intact - Musculoskeletal other (physical deconditioning noted) - Psychiatric oriented to person, oriented to place - Labs 02/25/18 04:00 02/25/18 04:00 Diabetes panel 02/25/18 02/25/18 Range/Units 04:00 04:00 Sodium 147 H (136-145) mEq/L Potassium 3.1 L (3.5-5.1) mEq/L Chloride 108 H (98-107) mEq/L Carbon Dioxide 32 H (23-29) mEq/L BUN 21 (8-23) mg/dL Creatinine 0.77 (0.70-1.30) mg/dL Glucose 231 H (70-105) mg/dL Calcium 8.5 L (8.6-10.3) mg/dL Triglycerides 90 (< 150) mg/dL Calcium panel 02/25/18 Range/Units 04:00 Calcium 8.5 L (8.6-10.3) mg/dL Phosphorus 1.8 L (2.7-4.5) mg/dL Pituitary panel 02/25/18 Range/Units 04:00 Sodium 147 H (136-145) mEq/L Potassium 3.1 L (3.5-5.1) mEq/L Chloride 108 H (98-107) mEq/L Carbon Dioxide 32 H (23-29) mEq/L BUN 21 (8-23) mg/dL Creatinine 0.77 (0.70-1.30) mg/dL Glucose 231 H (70-105) mg/dL Calcium 8.5 L (8.6-10.3) mg/dL Adrenal panel 02/25/18 Range/Units 04:00 Sodium 147 H (136-145) mEq/L Potassium 3.1 L (3.5-5.1) mEq/L Chloride 108 H (98-107) mEq/L Carbon Dioxide 32 H (23-29) mEq/L BUN 21 (8-23) mg/dL Creatinine 0.77 (0.70-1.30) mg/dL Glucose 231 H (70-105) mg/dL Calcium 8.5 L (8.6-10.3) mg/dL Consult Discharge Plan - Plan Referrals: Daron Blanco MD [Primary Care Provider] - - Attending Attestation For this encounter, I have reviewed the ARCHITECTURAL MANAGER or PA documentation, treatment plan, and medical decision making; and I have had face to face time with this patient. <Jorge Guerrero E - Last Filed: 02/26/18 08:15> Date of Encounter: 02/26/18 - Assessment and Plan (1) Rectal cancer Current Visit: No Status: Chronic Pt aspirated over night and is now intubated. Will follow along. Objective Vital Signs - Last 8 Hours Temp Pulse Resp BP Pulse Ox 02/26/18 07:21 14 118/92 97 02/26/18 05:41 14 100 02/26/18 05:30 34 94 02/26/18 04:55 97.6 F 181 63/49 100 Intake and Output 02/25/18 02/26/18 02/26/18 23:59 07:59 15:59 Intake Total 1574 / 1574 154 / 154 Output Total 100 / 100 Balance 1474 / 1474 154 / 154 Intake: IV Fluids 1474 / 1474 154 / 154 Vasostrict 40 UNIT In Dextrose 4 / 4 5% 100 ML @ 0.03 UNIT/MIN 4.59 mls/hr IV .[id number] [facility] Rx#: [id number] EPINEPHrine 1 MG In Dextrose 5% 150 / 150 250 ML @ 5 MCG/MIN 75.3 mls/hr IVC CONT [facility] Rx#:[id number] Clinimix E 5%-15% SOLUTION 2, 1214 / 1214 000 ML @ 50 mls/hr IVC .Q24H [facility] with M.v.i. Adult 10 ml Rx# :[id number] Potassium Phosphate 44 MEQ In 0 260 / 260 .9 % Sodium Chloride 250 ML @ 40 mls/hr IVPB BID [facility] Rx#: [id number] Oral 100 / 100 Output: Stool 100 / 100 Other: Stool Size Smear Stool Consistency liquid Stool Color Brown # Urine Diapers 1 Blood Glucose* 335 373 - Labs 02/26/18 06:12 02/26/18 06:18 Diabetes panel 02/26/18 02/26/18 Range/Units 04:36 06:18 Sodium 143 141 (136-145) mEq/L Potassium 4.1 3.3 L (3.5-5.1) mEq/L Chloride 107 107 (98-107) mEq/L Carbon Dioxide 22 L 21 L (23-29) mEq/L BUN 31 H 32 H (8-23) mg/dL Creatinine 1.06 1.23 (0.70-1.30) mg/dL Glucose 391 H 373 H (70-105) mg/dL Calcium 7.9 L 7.3 L (8.6-10.3) mg/dL AST 7 L (13-39) Units/L ALT 5 L (7-52) Units/L Alkaline Phosphatase 62 (34-104) Units/L Albumin 1.7 L (3.5-5.7) g/dL Calcium panel 02/26/18 02/26/18 Range/Units 04:36 06:18 Calcium 7.9 L 7.3 L (8.6-10.3) mg/dL Phosphorus 4.9 H (2.7-4.5) mg/dL Albumin 1.7 L (3.5-5.7) g/dL Pituitary panel 02/26/18 02/26/18 Range/Units 04:36 06:18 Sodium 143 141 (136-145) mEq/L Potassium 4.1 3.3 L (3.5-5.1) mEq/L Chloride 107 107 (98-107) mEq/L Carbon Dioxide 22 L 21 L (23-29) mEq/L BUN 31 H 32 H (8-23) mg/dL Creatinine 1.06 1.23 (0.70-1.30) mg/dL Glucose 391 H 373 H (70-105) mg/dL Calcium 7.9 L 7.3 L (8.6-10.3) mg/dL Adrenal panel 02/26/18 02/26/18 Range/Units 04:36 06:18 Sodium 143 141 (136-145) mEq/L Potassium 4.1 3.3 L (3.5-5.1) mEq/L Chloride 107 107 (98-107) mEq/L Carbon Dioxide 22 L 21 L (23-29) mEq/L BUN 31 H 32 H (8-23) mg/dL Creatinine 1.06 1.23 (0.70-1.30) mg/dL Glucose 391 H 373 H (70-105) mg/dL Calcium 7.9 L 7.3 L (8.6-10.3) mg/dL Total Bilirubin 0.5 (0.3-1.0) mg/dL AST 7 L (13-39) Units/L ALT 5 L (7-52) Units/L Alkaline Phosphatase 62 (34-104) Units/L Albumin 1.7 L (3.5-5.7) g/dL
[2018-02-25] MEDS: Potassium Phosphate 44 MEQ in 0.9 % Sodium Chloride 250 ML IVPB SCH ×2 (12:59→22:07)
[2018-02-25] MEDS: 0.9 % Sodium Chloride w KCl 20 MEQ/1,000 ML MLS IVC SCH (16:27)
[2018-02-25] MEDS ORDERED: Clinimix E 5%-15% SOLUTION 2,000 ML with MVI, adult with vitamin K 10 ML IVC SCH (17:00)
[2018-02-26] MEDS: Insulin LISPRO 300 UNITS/3 ML VIAL SQ SCH ×2 (00:50→05:49)
[2018-02-26] MEDS: Metoclopramide 10 MG/2 ML VIAL IVP SCH (00:51)
[2018-02-26 04:59] LABS: Hematocrit 33.1 % (37.5-50.1); Lymphocytes # 0.2 K/mcL (0.6-4.6); Mean Corpuscular HGB Conc 30.2 g/dL (31.6-35.5); Mean Corpuscular Hemoglobin 28.2 pg (28.0-33.3); Mean Corpuscular Volume 93.2 fL (83.0-100.0); Mean Platelet Volume 10.3 fL (9.4-12.4); Platelet Count 150 K/mcL (140-400); Red Blood Count 3.55 M/mcL (4.19-5.50); Red Cell Distribution Width 15.8 % (11.5-14.5)
[2018-02-26 05:11] LABS: ABG Base Excess -1 mEq/L (-2 to 3); ABG HCO3 22 mEq/L (21-27); ABG Oxygen Saturation 100 % (95-98); ABG PCO2 31 mmHg (35-45); ABG PH 7.46 pH Units (7.32-7.45); ABG PO2 389 mmHg (85-104); ABG TCO2 23 mEq/L (20-26)
[2018-02-26] MEDS ORDERED: EPINEPHrine 1 MG in D5% in Water 250 ML IVC SCH (05:15)
[2018-02-26 05:23] LABS: BUN/Creatinine Ratio 29 (6-26); Blood Urea Nitrogen 31 mg/dL (8-23); Calcium 7.9 mg/dL (8.6-10.3); Carbon Dioxide 22 mEq/L (23-29); Chloride 107 mEq/L (98-107); Glucose 391 mg/dL (70-105); Magnesium 1.3 mg/dL (1.6-2.6); Osmolality,Calculated 319 (280-300); Phosphorous 4.9 mg/dL (2.7-4.5); Potassium 4.1 mEq/L (3.5-5.1); Sodium 143 mEq/L (136-145); Troponin I < 0.03 ng/mL (< 0.04); eGFR For Non-African Americans > 60 (> 60)
[2018-02-26 05:25] LABS: Monocytes # 0.4 K/mcL (0.0-1.3); Neutrophils # 4.3 K/mcL (1.6-8.9)
[2018-02-26 05:26] LABS: Platelet Estimate Normal (Normal)
[2018-02-26] MEDS ORDERED: Vasopressin 40 UNIT in D5% in Water 100 ML IV SCH (05:30)
[2018-02-26] MEDS ORDERED: 0.9 % Sodium Chloride 500 ML ONE (05:34)
[2018-02-26] MEDS ORDERED: Amiodarone Premix 150 MG/100 ML BAG IVPB ONE (05:38)
[2018-02-26] MEDS ORDERED: Amiodarone Premix 360 MG/200 ML BAG IVC ONE ×2 (05:38→11:55)
[2018-02-26] MEDS ORDERED: *HR* Metoprolol 5 MG/5 ML VIAL IVP ONE (05:47)
[2018-02-26] MEDS ORDERED: 0.9 % Sodium Chloride 1,000 ML ONE (05:57)
[2018-02-26] MEDS: *HR* Enoxaparin 40 MG/0.4 ML SYRINGE SQ SCH (06:00)
[2018-02-26] MEDS: Pantoprazole 40 MG VIAL IVP SCH ×2 (06:00→19:29)
--- NOTE | 2018-02-26 06:26 | Procedure Note ---
Date of procedure: 02/26/18 Procedure: Procedure: Arterial Line Placement Physician(s): Estella Meraz DO; Chace Cavazos DO; Dr. Winnie Hollingsworth Indication: Hypotension, need for close blood pressure monitoring Anesthesia: None A time-out was completed verifying correct patient, procedure, site, positioning , and implant(s) or special equipment if applicable. Patient's right thigh was prepped and draped in the usual sterile fashion. Ultrasound guidance was used to aid needle placement. A 20g Arrow arterial line was introduced into the femoral artery. Catheter was threaded, and the needle was removed with appropriate blood return. Good waveform was observed. The patient tolerated the procedure well and there were no complications. Blood Loss: Minimal Complications: None Dr. Hollingsworth was present during the entire procedure. Anesthesia: none Surgeon: Estella Meraz Was there an neurosurgical physician assistant present: Yes Record Label Internship: Chace Cavazos Estimated blood loss (cc): 5 Specimen: none Condition: critical Disposition: ICU
[2018-02-26] MEDS: Norepinephrine 4 MG in D5% in Water 250 ML IVC SCH ×2 (06:30→09:05)
[2018-02-26] MEDS ORDERED: Dexmedetomidine HCl 400 MCG/100 ML MLS IVC ONE (06:33)
--- NOTE | 2018-02-26 06:36 | Event Note ---
Date of Encounter: 02/26/18 Time of Encounter: 06:24 At approximate 4:30 rapid response was called. Upon arrival to the room patient was found slumped over and unresponsive despite verbal and painful stimuli. There appeared to be vomiting in his mouth as well as on the bed. Vitals were taken the patient was found to be extremity tachycardic with a rate in the 170s and a blood pressure that was very difficult to obtain even manually but appeared to be 70 over palpation. Oxygen saturation was unable to be obtained. That time the decision was made to emergently intubate which was completed by respiratory therapy. Patient was noted to have rightward gaze and possible right-sided facial droop concerning for CVA. Patient was started on norepinephrine for blood pressure support and taken emergently to the CT scanner. CT head showed no acute intracranial abnormality and encephalomalacia related to previous hemorrhage. Patient was then transported to the ICU. Upon being placed on the monitor he was found to have a heart rate fluctuating between 170 and 200 which appeared irregular concerning for atrial fibrillation. Despite being on norepinephrine at 30 mcgs per kilogram per hour patient continued to have a blood pressure of 50/30. Given the sedation rapid heart rate with A. fib and hypotension the decision was made to cardiovert. Significant cardioversion was attempted twice, first at 150 J and again at 200 J unsuccessfully. At this point we started amiodarone with 150 mg bolus followed by 1 mg/m drip. Vasopressin and epinephrine were also added for blood pressure support. Arterial line and central venous catheter were emergently placed (see procedure note for details). Blood pressure then began to respond somewhat and vasopressors are being titrated to maintain a map greater than 65. Repeat laboratory evaluation is pending. Patient is on the general surgery service and the on-call surgeon, Dr. Lazo, was notified and updated of the events and the patient's condition. The was also updated.
[2018-02-26] MEDS: Dexmedetomidine HCl 400 MCG/100 ML MLS IVC SCH ×3 (06:40→18:27)
[2018-02-26 06:42] LABS: Hematocrit 29.2 % (37.5-50.1); Hemoglobin 8.6 g/dL (12.9-16.9); Mean Corpuscular HGB Conc 29.5 g/dL (31.6-35.5); Mean Corpuscular Hemoglobin 28.5 pg (28.0-33.3); Mean Corpuscular Volume 96.7 fL (83.0-100.0); Mean Platelet Volume 10.1 fL (9.4-12.4); Platelet Count 120 K/mcL (140-400); Red Blood Count 3.02 M/mcL (4.19-5.50); Red Cell Distribution Width 15.6 % (11.5-14.5)
--- NOTE | 2018-02-26 06:45 | Procedure Note ---
Date of procedure: 02/26/18 Procedure: Central Venous Catheter (CVC, Central Line) Placement Date: 02/26/18 Time: 0600 Indication: Hemodynamic monitoring/Intravenous access Resident: Estella Meraz DO Attending: Dr. Winnie Hollingsworth A time-out was completed verifying correct patient, procedure, site, positioning , and special equipment if applicable. The patient was placed in a position appropriate for central line placement based on the vein to be cannulated. The patient's right groin was prepped and draped in sterile fashion. A triple lumen Cordis catheter was introduced into the the common femoral vein using the Seldinger technique under ultrasound guidance. The catheter was threaded smoothly over the guide wire and appropriate blood return was obtained. Each lumen of the catheter was evacuated of air and flushed with sterile saline. The catheter was then sutured in place to the skin and a sterile dressing applied. Perfusion to the extremity distal to the point of catheter insertion was checked and found to be adequate. Dr. Hollingsworth was present for the entire procedure. Estimated Blood Loss: minimal The patient tolerated the procedure well and there were no complications. Anesthesia: none Surgeon: Estella Meraz Was there an graphic design assistant present: Yes Consulting It Architect: Chace Cavazos Estimated blood loss (cc): 5 Specimen: none Pathology: none sent Condition: critical Disposition: ICU
[2018-02-26 06:58] LABS: ABG Base Excess -5 mEq/L (-2 to 3); ABG HCO3 19 mEq/L (21-27); ABG Oxygen Saturation 100 % (95-98); ABG PCO2 28 mmHg (35-45); ABG PH 7.44 pH Units (7.32-7.45); ABG PO2 262 mmHg (85-104); ABG TCO2 20 mEq/L (20-26); Blood Gas Modality VC; Blood Gas PEEP 5 cm H2O; Blood Gas Respiration Rate 16; Blood Gas VT 450 cc
[2018-02-26 06:59] LABS: INR 1.4; Prothrombin Time 15.4 Seconds (9.4-12.1)
[2018-02-26 07:02] LABS: Activated Partial Thrombo Time 42.1 Seconds (26.0-36.0)
[2018-02-26 07:07] LABS: Alanine Aminotransferase 5 Units/L (7-52); Albumin 1.7 g/dL (3.5-5.7); Albumin/Globulin Ratio 0.9 (1.1-2.2); Alkaline Phosphatase 62 Units/L (34-104); Aspartate Amino Transferase 7 Units/L (13-39); BUN/Creatinine Ratio 26 (6-26); Bilirubin,Direct 0.3 mg/dL (0.0-0.2); Bilirubin,Indirect 0.2 mg/dL (0.0-1.2); Bilirubin,Total 0.5 mg/dL (0.3-1.0); Blood Urea Nitrogen 32 mg/dL (8-23); Calcium 7.3 mg/dL (8.6-10.3); Carbon Dioxide 21 mEq/L (23-29); Chloride 107 mEq/L (98-107); Glucose 373 mg/dL (70-105); Magnesium 1.6 mg/dL (1.6-2.6); Osmolality,Calculated 314 (280-300); Potassium 3.3 mEq/L (3.5-5.1); Sodium 141 mEq/L (136-145); Total Protein 3.7 g/dL (6.4-8.9); eGFR For Non-African Americans 58 (> 60)
[2018-02-26] MEDS: Phenylephrine 10 MG in D5% in Water 250 ML IVC SCH ×3 (07:43→10:24)
[2018-02-26] MEDS ORDERED: Ringers Solution, Lactated 1,000 ML ONE (08:02)
[2018-02-26] MEDS: Ringers Solution, Lactated 1,000 ML IVC ONE ×2 (08:09→08:10)
[2018-02-26] MEDS ORDERED: Fluconazole 200 MG/100 ML 200 MG/100 ML BAG IVPB SCH (09:00)
[2018-02-26] MEDS ORDERED: Insulin Human Regular 100 UNIT in 0.9 % Sodium Chloride 100 ML IVC SCH (09:00)
[2018-02-26] MEDS ORDERED: Ringers Solution, Lactated 1,000 ML IVC ONE (09:18)
[2018-02-26] MEDS ORDERED: Perflutren Lipid Microsphere 1.3 ML in 0.9 % Sodium Chloride 8.7 ML IVP ONE (09:23)
[2018-02-26 09:24] LABS: ABG Base Excess -4 mEq/L (-2 to 3); ABG HCO3 19 mEq/L (21-27); ABG Oxygen Saturation 98 % (95-98); ABG PCO2 25 mmHg (35-45); ABG PH 7.49 pH Units (7.32-7.45); ABG PO2 93 mmHg (85-104); ABG TCO2 20 mEq/L (20-26); Blood Gas PEEP 5 cm H2O; Blood Gas Respiration Rate 12; Blood Gas VT 480 cc
[2018-02-26] MEDS: Hydrocortisone Sodium Succ 100 MG/2 ML VIAL IVP SCH ×2 (09:32→19:28)
[2018-02-26] MEDS: Piperacillin/Tazobactam 3.375 GM in 0.9 % Sodium Chloride Mini Bag 100 ML IVPB SCH ×2 (09:33→19:28)
--- NOTE | 2018-02-26 10:03 | General Surgery Progress Note ---
Date of Encounter: 02/26/18 Time of Encounter: 08:25 - Assessment and Plan (1) Postoperative ileus Current Visit: Yes Status: Acute Records reviewed noting patient with episode of found slumped and unresponsive despite verbal and painful stimuli at approximately 0430 this a.m. Blood pressure was noted to be approximately 70 over palp. He was emergently intubated (noted vomitus on patient's face in bed prior to intubation), he was started on norepinephrine for blood pressure support and sent to the CT scanner which was unremarkable for acute intracranial abnormality. His HR was greater than 170, a-fib, and did not convert with cardioversion x2. He was started on amiodarone. Currently in the ICU he is noted to be maxed on norepinephrine as well as titrating up on vasopressin and epinephrine. Noted small bowel follow-through 02/24/2018 with rapid transit of contrast into the colon. NG was removed on 02/25/2018 and the patient was child on a full liquid diet. TPN was continued for nutritional support. Abdominal exam is unremarkable. Per bedside RN, a CT of the abdomen and pelvis is ordered. KUB 02/26 is without evidence of extraluminal contrast. Bowel gas pattern is nonspecific and nonobstructive. Low suspicion for abdominal abscess or extravasation. Suspect acute respiratory failure multifactorial for aspiration and atrial fibrillation. Management per primary and/or/critical care. Plan: NPO Continue NG per primary team continue supportive care and discomfort management continue G.I. and DVT prophylaxis serial abdominal exams repeat a.m. labs we will continue to follow along with you (2) Acute respiratory failure Current Visit: Yes Status: Acute See above Qualifiers: Respiratory failure complication: unspecified whether with hypoxia or hypercapnia Qualified Code(s): J96.00 - Acute respiratory failure, unspecified whether with hypoxia or hypercapnia (3) Rectal cancer Current Visit: No Status: Chronic Follow with oncology as an outpatient. Will need a pet scan completed (4) Anemia of chronic disease Current Visit: No Status: Acute No evidence of acute bleeding. Continue iron infusions/complete. Subjective Narrative: Intubated and sedated. Unable to obtain subjective information. Objective Vital Signs - Last 8 Hours Temp Pulse Resp BP Pulse Ox 02/26/18 09:00 119 24 83/47 98 02/26/18 08:00 98.4 F 129 32 63/36 98 02/26/18 07:21 14 118/92 97 02/26/18 06:40 97.8 F 118 34 105/57 100 02/26/18 05:41 14 100 02/26/18 05:30 34 94 02/26/18 04:55 97.6 F 181 63/49 100 Intake and Output 02/25/18 02/26/18 02/26/18 23:59 07:59 15:59 Intake Total 1574 / 1574 154 / 154 2250 / 2250 Output Total 100 / 100 Balance 1474 / 1474 154 / 154 2250 / 2250 Intake: IV Fluids 1474 / 1474 154 / 154 2250 / 2250 Vasostrict 40 UNIT In Dextrose 4 / 4 0 / 0 5% 100 ML @ 0.03 UNIT/MIN 4.59 mls/hr IV .[id number] [facility] Rx#: [id number] EPINEPHrine 1 MG In Dextrose 5% 150 / 150 250 ML @ 5 MCG/MIN 75.3 mls/hr IVC CONT [facility] Rx#:[id number] Clinimix E 5%-15% SOLUTION 2, 1214 / 1214 000 ML @ 50 mls/hr IVC .Q24H [facility] with M.v.i. Adult 10 ml Rx# :[id number] Levophed 4 MG In Dextrose 5% 250 / 250 250 ML @ Titrate IVC CONT [facility] Rx#:[id number] Lactated Ringers 1,000 ML @ 999 2000 / 2000 mls/hr IVC .Q1H1M [facility] Rx#: [id number] Potassium Phosphate 44 MEQ In 0 260 / 260 .9 % Sodium Chloride 250 ML @ 40 mls/hr IVPB BID [facility] Rx#: [id number] Oral 100 / 100 Output: Stool 100 / 100 Other: Stool Size Smear Stool Consistency liquid Stool Color Brown # Urine Diapers 1 Blood Glucose* 335 373 230 - General physical appearance other (Intubated and sedated) - ENT Other (NG and ET tube noted.) - Neck Neck exam: trachea midline - Respiratory other (Course mechanical breath sounds) - Cardiovascular Cardiovascular exam: Present: tachycardia - Abdomen Abdomen: Present: soft, non tender (Does not respond to palpation of the abdomen ), wound (Colostomy is with output. Stoma is pink and moist.). Absent: bowel sounds present Hernia: none - Incision Incision: Present: clean and dry, intact - Integumentary no growths - Neurologic other (Intubated and sedated) - Musculoskeletal other (Intubated and sedated) - Psychiatric other (Intubated and sedated) - Labs 02/26/18 06:12 02/26/18 06:18 Diabetes panel 02/26/18 02/26/18 Range/Units 04:36 06:18 Sodium 143 141 (136-145) mEq/L Potassium 4.1 3.3 L (3.5-5.1) mEq/L Chloride 107 107 (98-107) mEq/L Carbon Dioxide 22 L 21 L (23-29) mEq/L BUN 31 H 32 H (8-23) mg/dL Creatinine 1.06 1.23 (0.70-1.30) mg/dL Glucose 391 H 373 H (70-105) mg/dL Calcium 7.9 L 7.3 L (8.6-10.3) mg/dL AST 7 L (13-39) Units/L ALT 5 L (7-52) Units/L Alkaline Phosphatase 62 (34-104) Units/L Albumin 1.7 L (3.5-5.7) g/dL Calcium panel 02/26/18 02/26/18 Range/Units 04:36 06:18 Calcium 7.9 L 7.3 L (8.6-10.3) mg/dL Phosphorus 4.9 H (2.7-4.5) mg/dL Albumin 1.7 L (3.5-5.7) g/dL Pituitary panel 02/26/18 02/26/18 Range/Units 04:36 06:18 Sodium 143 141 (136-145) mEq/L Potassium 4.1 3.3 L (3.5-5.1) mEq/L Chloride 107 107 (98-107) mEq/L Carbon Dioxide 22 L 21 L (23-29) mEq/L BUN 31 H 32 H (8-23) mg/dL Creatinine 1.06 1.23 (0.70-1.30) mg/dL Glucose 391 H 373 H (70-105) mg/dL Calcium 7.9 L 7.3 L (8.6-10.3) mg/dL Adrenal panel 02/26/18 02/26/18 Range/Units 04:36 06:18 Sodium 143 141 (136-145) mEq/L Potassium 4.1 3.3 L (3.5-5.1) mEq/L Chloride 107 107 (98-107) mEq/L Carbon Dioxide 22 L 21 L (23-29) mEq/L BUN 31 H 32 H (8-23) mg/dL Creatinine 1.06 1.23 (0.70-1.30) mg/dL Glucose 391 H 373 H (70-105) mg/dL Calcium 7.9 L 7.3 L (8.6-10.3) mg/dL Total Bilirubin 0.5 (0.3-1.0) mg/dL AST 7 L (13-39) Units/L ALT 5 L (7-52) Units/L Alkaline Phosphatase 62 (34-104) Units/L Albumin 1.7 L (3.5-5.7) g/dL Consult Discharge Plan - Plan Referrals: Daron Blanco MD [Primary Care Provider] -
--- NOTE | 2018-02-26 10:06 | Pulmonology Progress Note ---
<Wallace Samuel - Last Filed: 02/26/18 16:48> Date of Encounter: 02/26/18 Time of Encounter: 10:05 Assessment and Plan (1) Hypotension Current Visit: Yes Status: Acute Patient blood pressure is currently 80/41 despite maximum treatment with IV fluids, norepinephrine, vasopressin, phenylephrine, and Solu-Cortef. Concern for septic shock secondary to mesenteric ischemia versus bowel perforation. Patient's family elected not to proceed with surgical intervention given risk/ benefit in the light of clinical indicators and radiological findings. Patient's family requests patient code status be changed to DNR CC arrest Patient's elected to withdraw life-sustaining care, pressors were stopped and patient was extubated at 1532 Continue to monitor for management of agitation, and pain relief. Qualifiers: Hypotension type: unspecified hypotension type Qualified Code(s): I95.9 - Hypotension, unspecified (2) Tachycardia Current Visit: Yes Status: Acute Patient initially found to be in A. fib with RVR in tachycardia into the 150- 200 range this a.m. unsuccessfully defibrillated twice with 150 and 200 J, respectively. Tachycardia minimally responsive to amiodarone infusion and is currently tachycardic in the 120s and hypotensive despite IV fluid management Patient currently receiving 0.5 mg/m amiodarone infusion (3) Lactic acidosis Current Visit: Yes Status: Acute Likely due to septic shock Patient lactic acid measured this morning at 8 at 6:30 AM Second measurement 4 hours later of 5.2 Patient started on Zosyn as well as fluconazole for potential infectious etiology (4) Acute respiratory failure Current Visit: Yes Status: Acute Patient is currently intubated and mechanically ventilated for airway protection Ventilator bundle ordered Qualifiers: Respiratory failure complication: unspecified whether with hypoxia or hypercapnia Qualified Code(s): J96.00 - Acute respiratory failure, unspecified whether with hypoxia or hypercapnia (5) Hypokalemia Current Visit: Yes Status: Acute Most current potassium level 3.1 Replace as needed (6) Acute kidney injury Current Visit: No Status: Acute Most likely due to hypoperfusion in the setting of septic shock Continue IVF and monitoring (7) Diabetes mellitus Current Visit: No Status: Chronic Most current glucose reading at 172 Continue current regimen for management Qualifiers: Diabetes mellitus type: type 2 Diabetes mellitus complication status: without complication Qualified Code(s): E11.9 - Type 2 diabetes mellitus without complications Subjective Principal diagnosis: Small bowel obstruction Interval history: Patient is 70-year-old male presenting to the ICU status post 1 week after colectomy on 02/18/2018. Patient was discharged home on 02/23/2018 on regular diet passing gas through ostomy and without any noted abnormalities. Patient notes a sensation of stool or gas through ostomy on , February 19 and began to develop nausea and vomiting, worsening the evening with vomit being dark in color. At that time patient had also had associated abdominal distention with tympany. During the course of his hospital stay for surgical workup of SBO versus ileus patient was found slumped over in bed and rapid response was called. Patient was found to be in the 150s to 100 range and 2 unsuccessful cardioversions were attempted at 150 and 200 J, respectively. An arterial line and central line were placed and patient was started on amiodarone as well as vasopressors. Patient appeared to respond to amiodarone with moderate resolution of tachycardia but has not responded to vasopressors with continuous hypotension despite maximum treatment with IV fluids, norepinephrine, vasopressin, phenylephrine, and Solu-Cortef. Objective PUL Vital signs: Last Vital Signs Temp 98.4 F 02/26/18 08:00 Pulse 119 02/26/18 09:00 Resp 24 02/26/18 09:00 BP 83/47 02/26/18 09:00 Pulse Ox 98 02/26/18 09:00 General appearance: lethargic Eyes: nonicteric Effort: other (Patient is intubated and mechanically ventilated) Auscultation: bilateral: clear Cardiovascular: irregular rhythm Gastrointestinal: non-distended, other (Patient abdomen is firm to palpation) pupils equal and round Ventilator Settings Ventilator Settings: Ventilator Settings, Last 8 Hours Ventilator Tidal Volume 480 Setting Ventilator Tidal Volume 480 Setting Ventilator Tidal Volume 450 Setting Ventilator Tidal Volume 450 Setting Ventilator Tidal Volume 450 Setting Ventilator Respiratory Rate 12 Setting Ventilator Respiratory Rate 12 Setting Ventilator Respiratory Rate 16 Setting Ventilator Respiratory Rate 16 Setting Ventilator Respiratory Rate 16 Setting Actual Respiratory Rate 24 Actual Respiratory Rate 32 Actual Respiratory Rate 27 Actual Respiratory Rate 34 Positive End Expiratory 5 Pressure Positive End Expiratory 5 Pressure Positive End Expiratory 5 Pressure Positive End Expiratory 5 Pressure Positive End Expiratory 5 Pressure Peak Inspiratory Airway 12 Pressure Peak Inspiratory Airway 22 Pressure Peak Inspiratory Airway 16 Pressure Peak Inspiratory Airway 26 Pressure Results - Laboratory Findings CBC and BMP: 02/26/18 06:12 02/26/18 13:09 ABG ABG pH 7.49 pH Units (7.32-7.45) H 02/26/18 09:18 ABG pCO2 25 mmHg (35-45) L 02/26/18 09:18 ABG pO2 93 mmHg (85-104) D 02/26/18 09:18 ABG O2 Saturation 98 % (95-98) 02/26/18 09:18 PT/INR, D-dimer PT 15.4 Seconds (9.4-12.1) H 02/26/18 06:18 Abnormal lab findings: Abnormal lab results RBC 3.02 M/mcL (4.19-5.50) L 02/26/18 06:12 Hgb 8.6 g/dL (12.9-16.9) L 02/26/18 06:12 Hct 29.2 % (37.5-50.1) L 02/26/18 06:12 MCHC 29.5 g/dL (31.6-35.5) L 02/26/18 06:12 RDW 15.6 % (11.5-14.5) H 02/26/18 06:12 Plt Count 120 K/mcL (140-400) L 02/26/18 06:12 Band Neutrophils % 22.0 % (0-4) H 02/26/18 04:36 Myelocytes % 2.0 % (0) H 02/26/18 04:36 Lymphocytes # 0.2 K/mcL (0.6-4.6) L 02/26/18 04:36 Nucleated RBCs/100 WBC 1.0 /100 WBC (0) H 02/26/18 04:36 Poikilocytosis 1+ (Not Present) A 02/22/18 11:38 Anisocytosis 1+ (Not Present) A 02/22/18 11:38 PT 15.4 Seconds (9.4-12.1) H 02/26/18 06:18 APTT 42.1 Seconds (26.0-36.0) H 02/26/18 06:18 ABG pH 7.49 pH Units (7.32-7.45) H 02/26/18 09:18 ABG pCO2 25 mmHg (35-45) L 09/27/18 09:18 ABG HCO3 19 mEq/L (21-27) L 02/26/18 09:18 ABG Base Excess -4 mEq/L (-2 to 3) L 02/26/18 09:18 Potassium 3.3 mEq/L (3.5-5.1) L 02/26/18 06:18 Carbon Dioxide 21 mEq/L (23-29) L 02/26/18 06:18 BUN 32 mg/dL (8-23) H 02/26/18 06:18 Est GFR (Non-Af Amer) 58 (> 60) L 02/26/18 06:18 Glucose 373 mg/dL (70-105) H 02/26/18 06:18 POC Glucose 337 mg/dL (70-99) H 02/25/18 14:58 Calculated Osmolality 314 (280-300) H 02/26/18 06:18 Lactic Acid 8.0 mmol/L (0.5-2.2) H* 02/26/18 06:32 Calcium 7.3 mg/dL (8.6-10.3) L 02/26/18 06:18 Phosphorus 4.9 mg/dL (2.7-4.5) H 02/26/18 04:36 Direct Bilirubin 0.3 mg/dL (0.0-0.2) H 02/26/18 06:18 AST 7 Units/L (13-39) L 02/26/18 06:18 ALT 5 Units/L (7-52) L 02/26/18 06:18 Serum Total Protein 3.7 g/dL (6.4-8.9) L 02/26/18 06:18 Albumin 1.7 g/dL (3.5-5.7) L 02/26/18 06:18 Globulin 2.0 g/dL (2.4-3.5) L 02/26/18 06:18 Albumin/Globulin Ratio 0.9 (1.1-2.2) L 02/26/18 06:18 Prealbumin 5.6 mg/dL (17.0-34.0) L 02/25/18 04:00 - Microbiology Findings Microbiology Findings: Microbiology, Last 48 Hours 02/26/18 06:33 Blood Culture - Preliminary Peripheral Venipuncture Culture is incubating and being continuously monitored for growth. Final report to follow. 02/26/18 06:33 Blood Culture - Preliminary Peripheral Venipuncture Culture is incubating and being continuously monitored for growth. Final report to follow. - Clinical Findings Intake & Output: Intake & Output 02/25/18 02/26/18 02/26/18 23:59 07:59 15:59 Intake Total 1574 / 1574 154 / 154 2250 / 2250 Output Total 100 / 100 Balance 1474 / 1474 154 / 154 2250 / 2250 Consult Discharge Plan - Plan Referrals: Daron Blanco MD [Primary Care Provider] - <Juan Miguel Grigsby - Last Filed: 02/26/18 20:38> Date of Encounter: 02/26/18 Objective PUL Vital signs: Last Vital Signs Temp 98.4 F 02/26/18 08:00 Pulse 119 02/26/18 09:00 Resp 24 02/26/18 09:00 BP 83/47 02/26/18 09:00 Pulse Ox 98 02/26/18 09:00 Ventilator Settings Ventilator Settings: Ventilator Settings, Last 8 Hours Ventilator Tidal Volume 480 Setting Ventilator Tidal Volume 480 Setting Ventilator Tidal Volume 450 Setting Ventilator Tidal Volume 450 Setting Ventilator Tidal Volume 450 Setting Ventilator Respiratory Rate 12 Setting Ventilator Respiratory Rate 12 Setting Ventilator Respiratory Rate 16 Setting Ventilator Respiratory Rate 16 Setting Ventilator Respiratory Rate 16 Setting Actual Respiratory Rate 24 Actual Respiratory Rate 32 Actual Respiratory Rate 27 Actual Respiratory Rate 34 Positive End Expiratory 5 Pressure Positive End Expiratory 5 Pressure Positive End Expiratory 5 Pressure Positive End Expiratory 5 Pressure Positive End Expiratory 5 Pressure Peak Inspiratory Airway 12 Pressure Peak Inspiratory Airway 22 Pressure Peak Inspiratory Airway 16 Pressure Peak Inspiratory Airway 26 Pressure Results - Laboratory Findings CBC and BMP: 02/26/18 06:12 02/26/18 13:09 ABG ABG pH 7.49 pH Units (7.32-7.45) H 02/26/18 09:18 ABG pCO2 25 mmHg (35-45) L 02/26/18 09:18 ABG pO2 93 mmHg (85-104) D 02/26/18 09:18 ABG O2 Saturation 98 % (95-98) 02/26/18 09:18 PT/INR, D-dimer PT 15.4 Seconds (9.4-12.1) H 02/26/18 06:18 Abnormal lab findings: Abnormal lab results RBC 3.02 M/mcL (4.19-5.50) L 02/26/18 06:12 Hgb 8.6 g/dL (12.9-16.9) L 02/26/18 06:12 Hct 29.2 % (37.5-50.1) L 02/26/18 06:12 MCHC 29.5 g/dL (31.6-35.5) L 02/26/18 06:12 RDW 15.6 % (11.5-14.5) H 02/26/18 06:12 Plt Count 120 K/mcL (140-400) L 02/26/18 06:12 Band Neutrophils % 22.0 % (0-4) H 02/26/18 04:36 Myelocytes % 2.0 % (0) H 02/26/18 04:36 Lymphocytes # 0.2 K/mcL (0.6-4.6) L 02/26/18 04:36 Nucleated RBCs/100 WBC 1.0 /100 WBC (0) H 02/26/18 04:36 Poikilocytosis 1+ (Not Present) A 02/22/18 11:38 Anisocytosis 1+ (Not Present) A 02/22/18 11:38 PT 15.4 Seconds (9.4-12.1) H 02/26/18 06:18 APTT 42.1 Seconds (26.0-36.0) H 02/26/18 06:18 ABG pH 7.49 pH Units (7.32-7.45) H 02/26/18 09:18 ABG pCO2 25 mmHg (35-45) L 02/26/18 09:18 ABG HCO3 19 mEq/L (21-27) L 02/26/18 09:18 ABG Base Excess -4 mEq/L (-2 to 3) L 02/26/18 09:18 Potassium 3.3 mEq/L (3.5-5.1) L 02/26/18 06:18 Carbon Dioxide 21 mEq/L (23-29) L 02/26/18 06:18 BUN 32 mg/dL (8-23) H 02/26/18 06:18 Est GFR (Non-Af Amer) 58 (> 60) L 02/26/18 06:18 Glucose 373 mg/dL (70-105) H 02/26/18 06:18 POC Glucose 337 mg/dL (70-99) H 02/25/18 14:58 Calculated Osmolality 314 (280-300) H 02/26/18 06:18 Lactic Acid 8.0 mmol/L (0.5-2.2) H* 02/26/18 06:32 Calcium 7.3 mg/dL (8.6-10.3) L 02/26/18 06:18 Phosphorus 4.9 mg/dL (2.7-4.5) H 02/26/18 04:36 Direct Bilirubin 0.3 mg/dL (0.0-0.2) H 02/26/18 06:18 AST 7 Units/L (13-39) L 02/26/18 06:18 ALT 5 Units/L (7-52) L 02/26/18 06:18 Serum Total Protein 3.7 g/dL (6.4-8.9) L 02/26/18 06:18 Albumin 1.7 g/dL (3.5-5.7) L 02/26/18 06:18 Globulin 2.0 g/dL (2.4-3.5) L 02/26/18 06:18 Albumin/Globulin Ratio 0.9 (1.1-2.2) L 02/26/18 06:18 Prealbumin 5.6 mg/dL (17.0-34.0) L 02/25/18 04:00 - Microbiology Findings Microbiology Findings: Microbiology, Last 48 Hours 02/26/18 06:33 Blood Culture - Preliminary Peripheral Venipuncture Culture is incubating and being continuously monitored for growth. Final report to follow. 02/26/18 06:33 Blood Culture - Preliminary Peripheral Venipuncture Culture is incubating and being continuously monitored for growth. Final report to follow. - Clinical Findings Intake & Output: Intake & Output 02/25/18 02/26/18 02/26/18 23:59 07:59 15:59 Intake Total 1574 / 1574 154 / 154 2250 / 2250 Output Total 100 / 100 Balance 1474 / 1474 154 / 154 2250 / 2250 - Attending Attestation I examined this patient and my medical decision-making was reviewed with the Resident Physician. I agree with the documented findings, disposition and treatment plan as described except to the extent set forth below. Patient seen and examined. Labs, radiology, chart personally reviewed. 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 Pulmonary: Acceptable oxygenation and ventilation. There is high PEEPi and vent setting changed. Repeat ABG. Cardiovascular: very unstable and he is requiring multiple pressors. Subsequently discussed with Dr. Guerrero and family, after multiple discussion we all agreed he has poor prognosis and his condition unstable for intervention and patient code status was changed to comfort. GI: Nutrition per dietary and GI prophylaxis per routine. Patient is NPO and hold TPN. Surgery is aware and suspect intraabdominal process could be the cause , will need to repeat CT abdomen. This was done and confirmed my suspicion. Heme: DVT prophylaxis per routine ID: Continue antibiotics and plan to de-escalation. Add antifungal. Patient was resuscitated with fluid and antibiotic, however problem is source control. Renal; urine out put and renal funtion reviewed Endorcine: blood glucose is monitored. Insulin drip Lines: all lines checked and no evidence of infections Skin: skin care to prevent pressure ulcers per nursing routine care Discussed with family and prognosis is poor. I spent 40 min of Critical Care time with this patient. It involved decision making of high complexity to assess, manipulate, and support vital organ system failure and/or to prevent further life threatening deterioration of the patient' s condition. The time involved in the performance of separately reportable procedures was not counted toward critical care time.
[2018-02-26] MEDS ORDERED: Phenylephrine 50 MG in D5% in Water 250 ML IVC SCH (10:45)
[2018-02-26] MEDS ORDERED: Norepinephrine 8 MG in D5% in Water 250 ML IVC SCH (10:45)
[2018-02-26] MEDS ORDERED: Artificial Tears SOLN 15 ML BOTTLE BOTH EYES PRN (11:03)
[2018-02-26] MEDS ORDERED: Amiodarone Premix 360 MG/200 ML BAG IVC SCH (12:15)
[2018-02-26] MEDS: Artificial Tears SOLN 15 ML BOTTLE BOTH EYES SCH ×3 (12:55→19:50)
[2018-02-26 13:43] LABS: VBG Ionized Calcium 1.09 mmol/L (1.15-1.35)
[2018-02-26] MEDS ORDERED: FentaNYL (PF) 1,000 MCG in 0.9 % Sodium Chloride 80 ML IVC SCH (13:45)
[2018-02-26 13:54] LABS: BUN/Creatinine Ratio 23 (6-26); Blood Urea Nitrogen 31 mg/dL (8-23); Calcium 6.9 mg/dL (8.6-10.3); Carbon Dioxide 18 mEq/L (23-29); Chloride 107 mEq/L (98-107); Glucose 172 mg/dL (70-105); Magnesium 1.4 mg/dL (1.6-2.6); Osmolality,Calculated 295 (280-300); Potassium 3.1 mEq/L (3.5-5.1); Sodium 137 mEq/L (136-145); eGFR For Non-African Americans 52 (> 60)
[2018-02-26 15:37] VITALS: BP 40/22
--- NOTE | 2018-02-26 20:47 | Death Note ---
Discharge Sum: Summary - Date and Time Date of admission: 02/22/18 17:31 Date of : 02/26/18 Time of : 20:03 - Summary Details: Patient is a 72-year-old male who is admitted on 02/22/2018 for concerns of small bowel obstruction. At approximately 4:30 AM on February 26 rapid response was called to the patient's room where he was unresponsive with gastric contents in his oral cavity. Patient was found to be actually tachycardic and hypotensive. He was emergently intubated and transferred to the ICU. Head CT revealed no acute intracranial abnormality. Patient required multiple pressors for blood pressure support. Patient was evaluated by the critical care team as well as the primary surgical service who felt that his prognosis was extremely poor and after discussions with the family the decision was made to transition the patient to comfort care and compassionately withdraw care. Patient pain and anxiety were treated and he was extubated and pressor support was removed. At 2002 patient's cardiac activity and respirations ceased and the patient comfortably with family at bedside. - Additional Data Confirmation of as documented by pronouncing clinician: no pulse, no respirations, no heart sounds, pupils fixed and dilated Family: at bedside Additional persons at bedside: kennedy Attending/PCP notified?: Yes Attending physician: Nikki Fonseca MD Was code activated?: No Autopsy requested?: No cloth examiner hand notified?: Yes Organ bank notified?: Yes Advance directives: Yes Hospice patient?: No Discharge Sum: Diag - PCOD Probable Cause of : Septic shock Discharge Sum: Prov - Provider Primary care physician: Daron Blanco MD Admitting clinician: Armond Rosenberg Attending physician on admission: Armond Rosenberg Consults: 02/23/18 07:58 Consult to Occupational Therapy [CONS] Routine Comment: Evaluate, develop and implement POC Reason for Consult: Mobilization and d/c planning; recently admitted and recommende swign bed Does patient have active BEDREST order?: No Is patient medically & hemodynamically stable?: Yes Patient assessed for mobility or mobilized this visit?: No Consult to Physical Therapy [CONS] Routine Comment: Evaluate, develop and implement POC Reason for Consult: Mobilization and d/c planning; recently admitted and recommende swign bed Does patient have active BEDREST order?: No Is patient medically & hemodynamically stable?: Yes Patient assessed for mobility or mobilized this visit?: No Consult to Bonderite Operator [CONS] Routine Reason for SW Consult: Mobilization and d/c planning; recently admitted and recommende swign bed 02/23/18 08:00 Consult to Invasive Line Access Team [CONS] Routine Reason for Consult: Midline Line Type: Midline PICC line indications: Limited vascular access Time Notified: 08:00 Call Completed: No 02/24/18 11:05 Consult to Invasive Line Access Team [CONS] Routine Reason for Consult: Picc Line Insertion Line Type: PICC Time Notified: 11:05 Call Completed: Yes consult to outboard motor tester [Consult to Nutrition] [CONS] Routine Comment: Total fluid rate 100ml/hour (MIV + TPN) Consulting Provider: NUTRITION Reason for Dietary Consult: TPN Start and Manage 02/25/18 11:42 consult to outboard motor tester [Consult to Nutrition] [CONS] Routine Comment: May continue TPN at 50ml/hr; add PO supplements Consulting Provider: NUTRITION Reason for Dietary Consult: PO Supplementation Other:: Diabetic modifications Pronouncing clinician: Chace Cavazos
[2018-02-26] MEDS ORDERED: Chlorhexidine Rinse 15 ML MOUTHWASH MM SCH (21:00)
[2018-02-26] MEDS ORDERED: *HR* Etomidate 20 MG/10 ML AMPUL IVP ONE (21:07)
[2018-02-26] MEDS ORDERED: *HR* Midazolam HCl 5 MG/5 ML VIAL IVP ONE (21:07)
[2018-02-27 05:19] LABS: Acinetobacter baumannii by PCR Not Detected (Not Detect); Candida albicans by PCR Not Detected (Not Detect); Candida glabrata by PCR Not Detected (Not Detect); Candida krusei by PCR Not Detected (Not Detect); Candida parapsilosis by PCR Not Detected (Not Detect); Candida tropicalis by PCR Not Detected (Not Detect); Enterobacter cloacae Cmplx PCR Not Detected (Not Detect); Enterobacteriaceae by PCR Not Detected (Not Detect); Enterococcus by PCR Not Detected (Not Detect); Escherichia coli by PCR Not Detected (Not Detect); Klebsiella oxytoca by PCR Not Detected (Not Detect); Klebsiella pneumoniae by PCR Not Detected (Not Detect); Proteus by PCR Not Detected (Not Detect); Pseudomonas aeruginosa by PCR Not Detected (Not Detect); Serratia marcescens by PCR Not Detected (Not Detect); Staphylococcus aureus by PCR Not Detected (Not Detect); Staphylococcus by PCR Not Detected (Not Detect); Streptococcus agalactiae(B)PCR Not Detected (Not Detect); Streptococcus by PCR Not Detected (Not Detect); Streptococcus pneumoniae PCR Not Detected (Not Detect); Streptococcus pyogenes (A) PCR Not Detected (Not Detect); blaKPC Carbapenem-Resist Gene Not Detected (Not Detect); mecA Methicillin-Resist Gene Not Detected (Not Detect); vanA/B Vancomycin-Resist Genes Not Detected (Not Detect)
== END 2018-02-26 21:08 | disposition expired | DRG 393 ==
LOC: 3ANU 10:19 → EMEROOARM 10:19 → 3ANU 14:50 → ICNU 02-26 05:30
PROVIDERS: ADMIT Internal Medicine; ATTEND Internal Medicine